=== PATIENT | female | born 1985 | race Caucasian/White ===

== ENCOUNTER 2017-02-14 04:15 | Emergency (ER) | payer MEDICARE, OTHER ==
[~2017-02-14] VITALS: Ht 152.4 cm; Wt 59.0 kg
[2017-02-14] MEDS ORDERED: SULFAMETH/TRIMETH 800/160 MG 1 UDTAB TABLET PO ONE ×2 (04:41→05:00)
[2017-02-14] MEDS ORDERED: HYDROCODONE/APAP 10/325MG 1 EA TABLET ONE (04:42)
[2017-02-14] MEDS ORDERED: HYDROCODONE/APAP 10/325MG 1 EA TABLET PO ONE (05:00)
[2017-02-14 05:04] LABS: BASOPHILS # (AUTO) 0.1 /CMM (0.0-0.2); BASOPHILS % (AUTO) 0.6 % (0.0-2.0); EOSINOPHILS # (AUTO) 0.1 /CMM (0.0-0.7); EOSINOPHILS % (AUTO) 1.3 % (0.0-6.0); HEMATOCRIT 39 % (33-45); HEMOGLOBIN 12.7 g/dL (11.5-14.8); LYMPHOCYTES # (AUTO) 2.4 /CMM (0.8-4.8); LYMPHOCYTES % (AUTO) 27.9 % (20.0-44.0); MEAN CORPUSCULAR HEMOGLOBIN 27 PG (26.0-33.0); MEAN CORPUSCULAR HGB CONC 33 g/dl (31.0-36.0); MEAN CORPUSCULAR VOLUME 83 fL (82-100); MONOCYTES # (AUTO) 0.7 /CMM (0.1-1.30); MONOCYTES % (AUTO) 8.4 % (2.0-12.0); NEUTROPHILS # (AUTO) 5.4 /CMM (1.8-8.9); NEUTROPHILS % (AUTO) 61.8 % (43.0-81.0); PLATELET COUNT (AUTO) 428 /CMM (150-450); RDW COEFFICIENT OF VARIATION 27.1 (11.5-15.0); RED BLOOD CELL COUNT(AUTO) 4.67 MIL/uL (4.0-5.2); WHITE BLOOD COUNT (AUTO) 8.7 K/uL (4.3-11.0)
[2017-02-14 05:15] LABS: CALCIUM, SERUM 8.6 mg/dL (8.5-10.1); CREATININE 0.6 mg/dL (0.6-1.3); POTASSIUM 3.8 mmol/L (3.5-5.1)
[2017-02-14 05:19] LABS: ALBUMIN 3.8 g/dL (3.4-5.0); BILIRUBIN,TOTAL 0.3 mg/dL (0.2-1.0); TOTAL PROTEIN, SERUM 8.7 g/dL (6.4-8.2)
[2017-02-14] MEDS ORDERED: OLANZAPINE 5 MG TABLET PO ONE (06:00)
[2017-02-14] MEDS ORDERED: OLANZAPINE 5 MG TABLET ONE (06:05)
--- NOTE | 2017-02-14 06:15 | NUR ---
Patient discharged to home in stable condition. Written and verbal after care instructions given. Patient verbalizes understanding of instruction.
[2017-02-14 06:21] VITALS: BP 110/74
== END 2017-02-14 06:22 | disposition home or self-care (01) ==
LOC: ER 04:19 → EDBD 04:19 → ER 06:22
DX: B08.4 Enteroviral vesicular stomatitis with exanthem (principal); L55.9 Sunburn, unspecified; F15.10 Other stimulant abuse, uncomplicated; B19.20 Unspecified viral hepatitis C without hepatic coma
CPT/HCPCS: 36415; 80053-TC; 80305; 83690-TC; 84703-TC; 85025-TC; A4606; G0480; Z7610

== ENCOUNTER 2017-02-14 17:56 | Emergency (ER) | payer MEDICARE, OTHER ==
[~2017-02-14] VITALS: Ht 154.9 cm; Wt 63.5 kg
[2017-02-14 18:04] VITALS: BP 124/79
[2017-02-14] MEDS ORDERED: CEPHALEXIN MONOHYDRATE 500 MG CAPSULE PO ONE (18:30)
[2017-02-14] MEDS ORDERED: IBUPROFEN 600 MG TABLET PO ONE (18:30)
[2017-02-14] MEDS ORDERED: MUPIROCIN OINT 2% 22 GM TUBE TP ONE (18:30)
[2017-02-14] MEDS ORDERED: MUPIROCIN OINT 2% 22 GM TUBE ONE (18:30)
[2017-02-14] MEDS: CEPHALEXIN MONOHYDRATE 500 MG CAPSULE PO ONE ×4 (18:35→18:50)
[2017-02-14] MEDS: IBUPROFEN 600 MG TABLET PO ONE ×4 (18:35→18:50)
== END 2017-02-14 19:22 | disposition home or self-care (01) ==
LOC: ER 17:58
DX: S51.801A Unspecified open wound of right forearm, initial encounter (principal); F15.10 Other stimulant abuse, uncomplicated; L01.00 Impetigo, unspecified; L55.9 Sunburn, unspecified; B19.20 Unspecified viral hepatitis C without hepatic coma; Z59.0 Homelessness; X58.XXXA Exposure to other specified factors, initial encounter; Y92.89 Other specified places as the place of occurrence of the external cause; Y93.89 Activity, other specified; Y99.8 Other external cause status
CPT/HCPCS: A4606; A6402; Z7610